=== PATIENT | male | born 1975 | race Caucasian/White ===

== ENCOUNTER 2017-10-13 18:38 | Emergency (ER) | payer OTHER ==
[2017-10-13 18:52] VITALS: BP 144/73; TEMP 97.3; O2SAT 99
[2017-10-13] MEDS ORDERED: POVIDONE IODINE 10 % 15 ML UD TOP ONE (19:31)
[2017-10-13] MEDS ORDERED: LIDOCAINE 1% 10 ML VIAL INJ ONE (19:31)
--- NOTE | 2017-10-13 19:31 | ED.PDOC ---
History of Present Illness - General Chief Complaint: Laceration Stated Complaint: laceration to right wrist Time Seen by Provider: 10/13/17 19:29 Source: patient Exam Limitations: no limitations - History of Present Illness Initial Comments: Patient presents with a laceration to his medial right forearm from a wire that got wrapped around it at work. He denies pain. He just wants sutures so he can go back to work. No other complaints. Timing/Duration: 1-3 hours Severity: mild Improving Factors: nothing Worsening Factors: nothing Associated Symptoms: denies symptoms Allergies/Adverse Reactions: Allergies NO KNOWN ALLERGY Allergy (Unverified 10/11/13 19:07) Home Medications: Ambulatory Orders NK [NK] 05/12/16 Review of Systems - Review of Systems Constitutional: States: no symptoms reported EENTM: States: no symptoms reported Respiratory: States: no symptoms reported Cardiology: States: no symptoms reported Gastrointestinal/Abdominal: States: no symptoms reported Genitourinary: States: no symptoms reported Musculoskeletal: States: no symptoms reported Skin: States: see HPI Neurological: States: no symptoms reported Endocrine: States: no symptoms reported Hematologic/Lymphatic: States: no symptoms reported Past Medical History (General) - Patient Medical History Hx Seizures: No Hx Stroke: No Hx Dementia: No Hx Asthma: No Hx of COPD: No Hx Cardiac Disorders: No Hx Congestive Heart Failure: No Hx Pacemaker: No Hx Hypertension: No Hx Thyroid Disease: No Hx Diabetes: No Hx Gastroesophageal Reflux: No Hx Renal Disease: No Hx Cancer: No Hx of HIV: No Hx Hepatitis C: No Hx MRSA: No - Vaccination History Hx Tetanus, Diphtheria Vaccination: No Hx Influenza Vaccination: No Hx Pneumococcal Vaccination: No - Social History Hx Tobacco Use: Yes Hx Alcohol Use: Yes Hx Substance Use: No Hx Substance Use Treatment: No Hx Depression: No - Triage Comment ED Triage Comment: Patient states he had wire get wrapped around his right wrist and cut his wrist. Family Medical History - Family History Father Living Status: Still Living Hx Family Hypertension: Yes Hx Cardiac Disease: Yes - [place] Hx Family;Other: Seizures; COPD Physical Exam - Physical Exam General Appearance: Alert Respiratory: chest non-tender, lungs clear, normal breath sounds Cardiovascular/Chest: normal peripheral pulses, regular rate, rhythm Peripheral Pulses: radial,right: 2+, radial,left: 2+ Gastrointestinal/Abdominal: normal bowel sounds, non tender, soft Extremity: other - 5/5 strength to flexion/extension of right wrist and fingers. 5/5 strength to adduction and abduction of the fingers and thumb. 5/5 strength to opposition and extension of the thumb. Capillary refill less than two seconds in each right nail bed and entire hand and right forearm. Neurologic: no motor/sensory deficits, other - full sensation over entire right forearm, hand and fingers Skin Exam: other - 2 cm transverse laceration on medial mid-third of the right forearm. 0.5 cm deep. Hemostatic. No intrusion into tendons, adipose, or musculature. Progress - Progress Progress: 10/13/17 19:57 Area was prepped and draped in a sterile fashion. 3 cc of 1% lidocaine with epinephrine was used to gain excellent local anesthesia. Wound was irrigated with 30 cc sterile normal saline. Wound edges approximated with 4 interrupted sutures using 4-0 proline. Area was clean, dry, and hemostatic at the end of the procedure. Patient tolerated procedure well. Tetanus booster given. Departure - Departure Clinical Impression: Laceration Disposition: Discharge to Home or Self Care Condition: Good Departure Forms: ED Discharge - Pt. Copy, Patient Portal Self Enrollment Instructions: DI for Laceration Repair Diet: resume usual diet Activity: increase activity as tolerated Home Medications: Ambulatory Orders NK [NK] 05/12/16 Additional Instructions: Apply topical antibiotic to the laceration twice per day for the first three days. Keep area clean. Return to the E.R. for redness, swelling, bleeding, pain , or pus. See your regular doctor or return to the E.R. for removal of stitches in 7-10 days.
[2017-10-13] MEDS ORDERED: TETANUS,DIPHTHERIA,PERTUSSIS 1 EA SYG IM ONE (19:55)
[2017-10-13] MEDS ORDERED: NEOMYCIN-BACITRACIN-POLYMYXIN 0.9 GM UD TOP ONE (19:57)
== END 2017-10-13 20:20 | disposition home or self-care (01) ==
LOC: ER 18:38
DX: S61.511A Laceration without foreign body of right wrist, initial encounter (principal); Z23 Encounter for immunization; W45.8XXA Other foreign body or object entering through skin, initial encounter; Y92.89 Other specified places as the place of occurrence of the external cause; Y99.0 Civilian activity done for income or pay

== ENCOUNTER 2018-08-05 08:23 | Emergency (ER) | payer SELFPAY ==
[2018-08-05] MEDS ORDERED: PROMETHAZINE HCL INJ 25 MG in SODIUM CHLORIDE 0.9% 50ML 50 ML IVPB ONE (08:44)
[2018-08-05] MEDS ORDERED: SODIUM CHLORIDE 0.9% 1000ML 1,000 ML IVS ONE ×2 (08:44→10:21)
[2018-08-05] MEDS ORDERED: PROMETHAZINE HCL INJ 25 MG/ML VIAL ONE (08:50)
[2018-08-05] MEDS ORDERED: SODIUM CHLORIDE 0.9% 50ML 50 ML ONE (08:50)
[2018-08-05] MEDS ORDERED: IBUPROFEN 200 MG TAB PO ONE (09:09)
--- NOTE | 2018-08-05 09:49 | RAD ---
EXAM DESCRIPTION: Abdomen Series CLINICAL HISTORY: 43 years Male nvd, cough, congestion COMPARISON: None TECHNIQUE: PA view of the chest and supine and upright views of the abdomen are obtained. FINDINGS: PA view of the chest demonstrates borderline cardiomegaly. There is no pulmonary vascular congestion. The mediastinum is unremarkable. No acute consolidation. No pneumothoraces or pleural effusions are seen. Supine and upright views of the abdomen show no evidence of free air. Gas-filled loops of small bowel and colon are noted which are normal in caliber. There is no evidence of obstruction. There are no abnormal intra-abdominal calcifications. The liver appears enlarged with the tip extending below the costophrenic angle with the measurement from the top of the right hemidiaphragm through the tip of the liver being 26.5 cm. No significant splenomegaly or nephromegaly. The psoas margins are sharp There are no discernible acute fractures or areas of osseous destruction or blastic change. IMPRESSION: No acute cardiopulmonary abnormality. Suspect hepatomegaly. Remainder of findings as described above. Electronically signed by: Carolin Dodge MD 08/05/2018 9:47 AM [facility]
[2018-08-05 10:41] VITALS: O2SAT 93
[2018-08-05] MEDS ORDERED: ACETAMINOPHEN 325 MG TAB PO ONE (10:42)
[2018-08-05] MEDS ORDERED: HYDROcodone 5MG/APAP 325MG 1 EA TAB PO ONE (11:21)
--- NOTE | 2018-08-05 11:24 | ED.PDOC ---
History of Present Illness - General Chief Complaint: GI Problem Stated Complaint: N/V/D,cough,shortness of breath Time Seen by Provider: 08/05/18 08:27 Source: patient Exam Limitations: no limitations - History of Present Illness Initial Comments: the patient is a 43-year-old male presenting to emergency room with 2 daysof cough, rhinitis, sore throat, nausea vomiting and diarrhea along with some body aches and fever. No syncope or near syncope. Essentially dehydration brought him in. He has been unable to hold down anything. He is feeling weak. he does have a headache but no nuchal rigidity and no altered mental status. Headache does go along with the fever. Timing/Duration: other - 2 days Severity: moderate Improving Factors: nothing Worsening Factors: nothing Associated Symptoms: fever/chills, headaches, loss of appetite, malaise, nausea/vomiting Allergies/Adverse Reactions: Allergies NO KNOWN ALLERGY Allergy (Unverified 10/11/13 19:07) Home Medications: Ambulatory Orders Hjrejcrvmilrn-Yfre-Fvuvnzhgme [Fioricet] 1 ea PO Q8H PRN #21 tab 08/05/18 Ondansetron [Zofran Odt] 4 mg PO Q4H PRN #10 tab 08/05/18 Review of Systems - Review of Systems Constitutional: States: fever, malaise, weakness EENTM: States: nose congestion, throat pain Respiratory: States: cough Cardiology: States: no symptoms reported Gastrointestinal/Abdominal: States: diarrhea, nausea, vomiting Musculoskeletal: States: no symptoms reported - generalized body aches Skin: States: no symptoms reported Neurological: States: no symptoms reported Endocrine: States: no symptoms reported All other Systems: No Change from Baseline Past Medical History (General) - Patient Medical History Hx Seizures: No Hx Stroke: No Hx Dementia: No Hx Asthma: No Hx of COPD: No Hx Cardiac Disorders: No Hx Congestive Heart Failure: No Hx Pacemaker: No Hx Hypertension: No Hx Thyroid Disease: No Hx Diabetes: No Hx Gastroesophageal Reflux: No Hx Renal Disease: No Hx Cancer: No Hx of HIV: No Hx Hepatitis C: No Hx MRSA: No - Vaccination History Hx Tetanus, Diphtheria Vaccination: No Hx Influenza Vaccination: No Hx Pneumococcal Vaccination: No - Social History Hx Tobacco Use: No Hx Chewing Tobacco Use: Yes Hx Alcohol Use: Yes Hx Substance Use: No Hx Substance Use Treatment: No Hx Depression: No Family Medical History - Family History Father Living Status: Still Living Hx Family Hypertension: Yes Hx Cardiac Disease: Yes - [place] Hx Family;Other: Seizures; COPD Physical Exam - Physical Exam General Appearance: Alert, No apparent distress, Other - he does appear dehydrated and fatigued. Eye Exam: bilateral normal Ears, Nose, Throat: hearing grossly normal, nasal congestion, pharyngeal erythema Neck: full range of motion, supple Respiratory: lungs clear, normal breath sounds, no respiratory distress, no accessory muscle use Cardiovascular/Chest: normal peripheral pulses, regular rate, rhythm - mildly tachycardic, no edema Peripheral Pulses: radial,right: 2+, radial,left: 2+, dorsalis pedis,right: 2+, dorsalis pedis,left: 2+ Gastrointestinal/Abdominal: non tender - no rebound or peritoneal signs. No point tenderness. No palpable masses., soft Rectal Exam: deferred Back Exam: no CVA tenderness, no vertebral tenderness Extremity: normal range of motion, non-tender, normal inspection, no pedal edema, no calf tenderness, normal capillary refill Skin Exam: normal color Comments: Vital Signs - 24 hr 08/05/18 08/05/18 08/05/18 08:32 09:35 10:00 Temperature 101.9 F H 101.8 F H 101.8 F H Pulse Rate [ 113 H 61 97 H Right Brachial] Respiratory 20 16 16 Rate Blood Pressure 130/96 117/71 95/75 [Right Arm] O2 Sat by Pulse 95 97 94 L Oximetry 08/05/18 10:30 Temperature 101.4 F H Pulse Rate [ 92 H Right Brachial] Respiratory 16 Rate Blood Pressure 140/75 [Right Arm] O2 Sat by Pulse 93 L Oximetry acute abdominal series fails to show any significant pathology. Blood cultures were performed. Laboratory Results - last 24 hr 08/05/18 08/05/18 08:55 08:55 WBC 9.7 RBC 4.92 Hgb 14.9 Hct 43.4 MCV 88.3 MCH 30.4 MCHC 34.4 RDW 12.7 Plt Count 246 MPV 6.8 L Absolute Neuts (auto) 8.00 H Absolute Lymphs (auto) 0.40 L Absolute Monos (auto) 0.70 Absolute Eos (auto) 0.50 H Absolute Basos (auto) 0.00 Neutrophils % 82.5 H Lymphocytes % 4.6 L Monocytes % 7.6 Eosinophils % 4.9 Basophils % 0.4 Sodium 135 Potassium 3.7 Chloride 101 Carbon Dioxide 23 Anion Gap 14.7 BUN 14 Creatinine 1.09 BUN/Creatinine Ratio 12.8 Random Glucose 107 H Serum Osmolality 271.0 L Calcium 9.6 Total Bilirubin 1.2 H AST 29 ALT 33 Alkaline Phosphatase 65 Serum Total Protein 8.2 Albumin 4.3 Globulin 3.9 H Albumin/Globulin Ratio 1.1 Amylase 41 Lipase 32 Progress - Progress Progress: 08/05/18 11:24 the patient is a 43-year-old male presenting to the emergency room with what appears to be a viral syndrome including symptoms of a upper respiratory tract infection as well as a gastroenteritis. he did test negative for influenza. Laboratory work otherwise looked reassuring. He did have significant dehydration and did receive 2 L of IV fluids. He'll be written for Zofran to control nausea as needed additionally he'll be written for some Fioricet for the headaches for as needed use. He needs to keep himself well hydrated. He needs to eat small bland meals. He should anticipate another 2-3 days of symptoms. Tylenol and Motrin can be alternated every 4 hours to control fever. ER warnings were given. he needs to follow back up with his primary care doctor next week. Departure - Departure Clinical Impression: Viral syndrome, Dehydration Disposition: Discharge to Home or Self Care Condition: Fair Departure Forms: ED Discharge - Pt. Copy, Patient Portal Self Enrollment Instructions: DI for Diarrhea and Traveler's Diarrhea -- Adult Diet: bland diet Activity: increase activity as tolerated Prescriptions: Jbeipxznvsuly-Uvbt-Qsoogclhmn [Fioricet] 1 ea PO Q8H PRN #21 tab PRN Reason: Pain Ondansetron [Zofran Odt] 4 mg PO Q4H PRN #10 tab PRN Reason: Vomiting Home Medications: Ambulatory Orders Mumolffvtkbot-Xdng-Sbdqnrinpw [Fioricet] 1 ea PO Q8H PRN #21 tab 08/05/18 Ondansetron [Zofran Odt] 4 mg PO Q4H PRN #10 tab 08/05/18 Additional Instructions: the patient is a 43-year-old male presenting to the emergency room with what appears to be a viral syndrome including symptoms of a upper respiratory tract infection as well as a gastroenteritis. he did test negative for influenza. Laboratory work otherwise looked reassuring. He did have significant dehydration and did receive 2 L of IV fluids. He'll be written for Zofran to control nausea as needed additionally he'll be written for some Fioricet for the headaches for as needed use. He needs to keep himself well hydrated. He needs to eat small bland meals. He should anticipate another 2-3 days of symptoms. Tylenol and Motrin can be alternated every 4 hours to control fever. ER warnings were given. he needs to follow back up with his primary care doctor next week.
[2018-08-05 11:36] VITALS: BP 114/74; TEMP 101.6
== END 2018-08-05 11:36 | disposition home or self-care (01) ==
LOC: ER 08:23
DX: B34.9 Viral infection, unspecified (principal); E86.0 Dehydration
CPT/HCPCS: 36415; 74019; 80053; 82150; 83690; 85025; 87040; 87502; A4216; J2550; J7030

== ENCOUNTER 2020-02-03 11:49 | Emergency (ER) | payer SELFPAY ==
[2020-02-03 12:55] VITALS: TEMP 97.3
[2020-02-03] MEDS ORDERED: ALBUTEROL SULFATE 2.5 MG/3 ML VIAL NEB ONE (13:01)
[2020-02-03] MEDS ORDERED: IPRATROPIUM/ALBUTEROL 3 ML VIAL NEB ONE (13:01)
--- NOTE | 2020-02-03 13:17 | RAD ---
EXAM DESCRIPTION: Chest,1 View CLINICAL HISTORY: 44 years Male, SOB WHEEZING COMPARISON: None available. TECHNIQUE: AP radiograph of the chest was obtained. FINDINGS: Trachea is midline.The cardiomediastinal silhouette is normal in size. The pulmonary vasculature is within normal limits.The lungs are clear with no acute consolidation.No evidence of pleural effusions. IMPRESSION: No acute cardiopulmonary process. Electronically signed by: Kori Solis MD 02/03/2020 1:16 PM CDT
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
[2020-02-03 14:26] VITALS: BP 127/93
[2020-02-03 14:27] VITALS: O2SAT 94
[2020-02-04] MEDS ORDERED: RACEPINEPHRINE 2.25% 0.5 ML UD ONE (01:20)
[2020-02-04] MEDS ORDERED: SUCCINYLCHOLINE CHLORIDE 200 MG/10 ML VIAL ONE (01:22)
== END 2020-02-03 14:26 | disposition home or self-care (01) ==
LOC: ER 11:49
DX: J45.21 Mild intermittent asthma with (acute) exacerbation (principal); F17.220 Nicotine dependence, chewing tobacco, uncomplicated
CPT/HCPCS: 71045; 94640; J7611; J7620

== ENCOUNTER 2020-02-03 21:57 | Emergency (ER) | payer SELFPAY ==
[2020-02-03] MEDS ORDERED: ALBUTEROL SULFATE 2.5 MG/3 ML VIAL NEB ONE ×3 (22:01→22:33)
[2020-02-03] MEDS ORDERED: IPRATROPIUM/ALBUTEROL 3 ML VIAL NEB ONE ×2 (22:09→22:12)
--- NOTE | 2020-02-03 22:44 | RAD ---
EXAM DESCRIPTION: XR CHEST, 2 VIEWS CLINICAL HISTORY: resp distress TECHNIQUE: Two views of the chest are submitted. COMPARISON: 02/03/2020 at 1:11 PM FINDINGS: Heart: The cardiothoracic silhouette is within normal limits. Lungs: No focal consolidation. Mediastinum: Unremarkable Pleura: No appreciable effusion. No pneumothorax. Bones: Intact Upper abdomen: Unremarkable IMPRESSION: No acute disease. Electronically signed by: Carlota Russo MD 02/03/2020 10:43 PM CDT
--- NOTE | 2020-02-03 23:22 | ED.PDOC ---
History of Present Illness - General Chief Complaint: Respiratory Problem Stated Complaint: resp distress, wheezing Time Seen by Provider: 02/03/20 22:28 Source: patient, RN notes reviewed, Vital Signs reviewed, family - , old records - From his visit on 02/03/2020 at approximately 1300 hrs. Exam Limitations: no limitations - History of Present Illness Initial Comments: Patient presents with worsening shortness of breath. He was seen here earlier today, chest x-ray was negative for any infiltrates and he markedly improved after a couple of breathing treatments. Patient was discharged home with a prescription for steroids and for an albuterol MDI and nebulizer supplies. Patient states that he was fine, got home ate dinner and then took the prednisone and approximately 45 minutes later became acutely more short of breath. Patient denies any fever. No cough at this time. Patient returns to ED because he was so short of breath he was concerned. Patient never had asthma growing up. He started having problems approximately 1 year ago while working in the [employer]. He has been using his sister's inhaler for the last 6 months to 1 year. These episodes are intermittent. Do not seem to be tied to any particular trigger. Timing/Duration: 7-24 hours Severity: severe Activities at Onset: none Possible Cause: occasional episodes Improving Factors: medication - Albuterol inhaler Worsening Factors: nothing Associated Symptoms: cough, wheezing Respiratory Risk Factors: no cause identified Allergies/Adverse Reactions: Allergies NO KNOWN ALLERGY Allergy (Unverified 02/03/20 12:51) Home Medications: Ambulatory Orders Gijtymqbwqktj-Babb-Lgbudlsrhe [Fioricet] 1 ea PO Q8H PRN #21 tab 08/05/18 Ondansetron [Zofran Odt] 4 mg PO Q4H PRN #10 tab 08/05/18 Albuterol Sulfate Nebs [Proventil Nebs] 2.5 mg INH Q4H #30 dose 02/03/20 Albuterol Sulfate [Albuterol Sulfate Hfa] 108 mcg INH Q6H #1 aer 02/03/20 predniSONE 60 mg PO DAILY #15 tab 02/03/20 Review of Systems - Review of Systems Constitutional: States: no symptoms reported, see HPI. Denies: chills, fever EENTM: States: no symptoms reported Respiratory: States: see HPI, cough - Intermittent, short of breath, wheezing. Denies: stridor Cardiology: Denies: chest pain, palpitations, syncope Gastrointestinal/Abdominal: States: no symptoms reported. Denies: diarrhea, nausea, vomiting Genitourinary: States: no symptoms reported Musculoskeletal: States: no symptoms reported. Denies: back pain, neck pain Skin: States: no symptoms reported. Denies: change in color, rash Neurological: States: no symptoms reported. Denies: tingling, weakness Endocrine: States: no symptoms reported Hematologic/Lymphatic: States: no symptoms reported All other Systems: No Change from Baseline Past Medical History (General) - Patient Medical History Hx Seizures: No Hx Stroke: No Hx Dementia: No Hx Asthma: No Hx of COPD: No Hx Cardiac Disorders: No Hx Congestive Heart Failure: No Hx Pacemaker: No Hx Hypertension: No Hx Thyroid Disease: No Hx Diabetes: No Hx Gastroesophageal Reflux: No Hx Renal Disease: No Hx Cancer: No Hx of HIV: No Hx Hepatitis C: No Hx MRSA: No - Vaccination History Hx Tetanus, Diphtheria Vaccination: No Hx Influenza Vaccination: No Hx Pneumococcal Vaccination: No - Social History Hx Tobacco Use: Yes - SNUFF Hx Chewing Tobacco Use: No Hx Alcohol Use: Yes Hx Substance Use: No Hx Substance Use Treatment: No Hx Depression: No Hx Physical Abuse: No Hx Emotional Abuse: No Hx Suspected Abuse: No - Female History Patient : No Family Medical History - Family History Father Living Status: Still Living Hx Family Asthma: No Hx Family Congestive Heart Failure: No Hx Family Hypertension: Yes Hx Cardiac Disease: Yes - MD Hx Family;Other: Seizures; COPD Physical Exam - Physical Exam General Appearance: Alert, Anxious, Obvious distress, Well Developed, Well Groomed, Well Hydrated, Well Nourished Eyes, Ears, Nose, Throat Exam: PERRL/EOMI, normal ENT inspection, pharynx normal Neck: non-tender, full range of motion, supple, other - No stridor Respiratory: respiratory distress - Severe, decreased breath sounds - Diffusely throughout, accessory muscle use - Mild intercostal retractions, rhonchi - Di ffusely throughout, wheezing - Inspiratory and expiratory. Expiratory ladder. 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 02/04/20 00:15 Patient presented with worsening respiratory distress from earlier today. Patient had minimal improvement after a DuoNeb with an albuterol. He did get some further improvement with an hour-long nebulizer treatment. Patient was given subcu epinephrine which moderately improved his oxygenation and improved his aeration. Wheezing was also diminished. 02/04/20 01:15 Patient was given IV fluids, approximately 600 mL's of normal saline, respiratory distress was noted to increase and his wheezing became worse. Cardiac enzymes are negative and BNP was low. Concern for this being cardiac asthma. Echocardiogram is not available at this time a night. With worsening respiratory drive and worsened aeration, decision was made to intubate the patient. This was an emergent procedure. 02/04/20 02:03 Patient was taken to the trauma suite. He was placed on a nonrebreather and oxygenated to 100%. Patient was given 90 of ketamine IV push, followed by 20 of etomidate and 150 of succinylcholine. Patient was easily intubated with a 7 and half endotracheal tube. There was a very transient desaturation into the 80%'s but he immediately came back to 100% with bagging. Patient noted to have reduced wheezing and better aeration. Patient tolerated the procedure well with no complications. Please see procedure note. Patient to be transferred via helicopter to [facility]. Patient has been accepted to the ED. Ramakrishna Sagastume M.D. #[id number] - Results/Orders Results/Orders: EXAM DESCRIPTION: Chest,1 View CLINICAL HISTORY: 44 years Male, SOB WHEEZING COMPARISON: None available. TECHNIQUE: AP radiograph of the chest was obtained. FINDINGS: Trachea is midline.The cardiomediastinal silhouette is normal in size. The pulmonary vasculature is within normal limits.The lungs are clear with no acute consolidation.No evidence of pleural effusions. IMPRESSION: No acute cardiopulmonary process. Electronically signed by: Kori Solis MD 02/03/2020 1:16 PM EXAM DESCRIPTION: XR CHEST, 2 VIEWS CLINICAL HISTORY: resp distress TECHNIQUE: Two views of the chest are submitted. COMPARISON: 02/03/2020 at 1:11 PM FINDINGS: Heart: The cardiothoracic silhouette is within normal limits. Lungs: No focal consolidation. Mediastinum: Unremarkable Pleura: No appreciable effusion. No pneumothorax. Bones: Intact Upper abdomen: Unremarkable IMPRESSION: No acute disease. Electronically signed by: Carlota Russo MD 02/03/2020 10:43 PM CDT EKG performed on 03 February 2020 at 2219 hrs.: Sinus tachycardia with occasional premature PVCs, normal axis deviation, no ST or T wave changes concerning for ischemia. Otherwise normal EKG 02/03/20 22:10 IV Care:Saline Lock per Protoc QSHIFT Oxygen Stat Pulse Ox Stat 02/03/20 22:15 EKG STAT 02/03/20 22:41 SARS-COV2 RT-PCR HIGH RISK Stat Laboratory Results - last 24 hr 02/03/20 02/03/20 02/03/20 22:15 22:15 22:15 WBC 12.5 H RBC 4.71 Hgb 14.8 Hct 42.0 MCV 89.3 MCH 31.4 H MCHC 35.2 RDW 13.2 Plt Count 268 MPV 6.8 L Absolute Neuts (auto) 11.70 H Absolute Lymphs (auto) 0.50 L Absolute Monos (auto) 0.20 Absolute Eos (auto) 0.10 Absolute Basos (auto) 0.00 Neutrophils % 93.4 H Lymphocytes % 4.2 L Monocytes % 1.6 L Eosinophils % 0.5 L Basophils % 0.3 Sodium 137 Potassium 3.5 L Chloride 103 Carbon Dioxide 23 Anion Gap 14.5 BUN 20 H Creatinine 1.18 BUN/Creatinine Ratio 16.9 Random Glucose 167 H Serum Osmolality 280.2 Lactic Acid 3.5 H* Calcium 9.5 Total Bilirubin 0.6 AST 33 ALT 42 Alkaline Phosphatase 61 Serum Total Protein 8.6 H Albumin 4.8 Globulin 3.8 H Albumin/Globulin Ratio 1.3 CT angiogram chest with contrast on 02/04/2020 CLINICAL INDICATION: Shortness of breath, wheezing TECHNIQUE: Multiple axial images are obtained throughout the chest following the administration of IV contrast. Computer generated 3D reconstructions/MIPS were performed. This exam was performed according to our departmental dose-optimization program, which includes automated exposure control, adjustment of the mA and/or kV according to patient size and/or use of iterative reconstruction technique. Total DLP is 923.02 mGy*cm. COMPARISON: None FINDINGS: ET tube tip is in the midthoracic trachea. Pneumomediastinum is noted greatest around the trachea and left mainstem bronchus. There is no pleural or pericardial effusion. There is no thoracic aortic aneurysm or dissection. Limited visualized upper abdomen is unremarkable. There are no filling defects within the pulmonary arteries to suggest a pulmonary embolus. There are a few peripheral groundglass opacities in the left upper lobe and lingula that are nonspecific. There may also be minimal groundglass opacity in the posterior inferior right upper lobe. Differential diagnosis would include viral infections. There is some bronchial wall thickening in the lower lobes raising a question of a mild bronchitis as well. The lungs are otherwise clear. No bony abnormality is noted. IMPRESSION: 1. No evidence of pulmonary embolus. 2. Pneumomediastinum most likely idiopathic but if there is any clinical concern for esophageal injury consider follow-up water soluble esophagram if the patient becomes extubated. 3. Nonspecific ground glass opacities greatest in the left l jason. Imaging features can be seen with a viral or COVID 19 pneumonia, though are nonspecific and can occur with a variety of infectious and noninfectious processes. [PneInd] 4. Mild bronchial wall thickening suggesting mild bronchitis as well. Electronically signed by: Ashok Tellez 02/04/2020 2:10 AM Procedures - Intubation Time of Intubation: 01:35 Intubation Method: orotracheal Tube Size (cm): 7.5 Medications: Succinylcholine - Patient given 90 of ketamine IV push, 20 of etomidate IV push and 150 of succinylcholine. Breath Sounds after Intubation: equal Intubation Complications: O2 saturation decreased - Transient for less than 30 seconds. Post Intubation Xray: No - CT of the chest showed on program director scouting film that the endotracheal tube was in good Departure - Departure Clinical Impression: Wheezing, Viral respiratory illness Respiratory failure Qualifiers: Chronicity: acute Respiratory failure complication: unspecified whether with hypoxia or hypercapnia Qualified Code(s): J96.00 - Acute respiratory failure, unspecified whether with hypoxia or hypercapnia Time of Disposition: 01:00 Disposition: Transfer to Hospital Condition: Serious Departure Forms: ED Discharge - Pt. Copy, Patient Portal Self Enrollment Home Medications: Ambulatory Orders Qweyvtrjjjnnr-Eecs-Skestpuelc [Fioricet] 1 ea PO Q8H PRN #21 tab 08/05/18 Ondansetron [Zofran Odt] 4 mg PO Q4H PRN #10 tab 08/05/18 Albuterol Sulfate Nebs [Proventil Nebs] 2.5 mg INH Q4H #30 dose 02/03/20 Albuterol Sulfate [Albuterol Sulfate Hfa] 108 mcg INH Q6H #1 aer 02/03/20 predniSONE 60 mg PO DAILY #15 tab 02/03/20 Critical Care Note - Critical Care Note Total Time (mins): 60 Transfer to Outside Facility - Transfer Information Decision to Transfer Date: 02/04/20 Decision to Transfer Time: 01:00 Reason for Transfer: ICU Accepting Provider:: Patient accepted to the emergency department Accepting Facility: [facility]
[2020-02-03] MEDS ORDERED: EPINEPHrine HCL AMP 1 MG/ML AMP SUBCU ONE (23:51)
[2020-02-03] MEDS ORDERED: SUCCINYLCHOLINE CHLORIDE 200 MG/10 ML VIAL ONE (23:55)
[2020-02-04] MEDS ORDERED: SODIUM CHLORIDE 0.9% 1000ML 1,000 ML IVS ONE (00:28)
[2020-02-04] MEDS ORDERED: RACEPINEPHRINE 2.25% 0.5 ML UD NEB ONE (01:15)
--- NOTE | 2020-02-04 02:11 | CT ---
CT angiogram chest with contrast on 02/04/2020 CLINICAL INDICATION: Shortness of breath, wheezing TECHNIQUE: Multiple axial images are obtained throughout the chest following the administration of IV contrast. Computer generated 3D reconstructions/MIPS were performed. This exam was performed according to our departmental dose-optimization program, which includes automated exposure control, adjustment of the mA and/or kV according to patient size and/or use of iterative reconstruction technique. Total DLP is 923.02 mGy*cm. COMPARISON: None FINDINGS: ET tube tip is in the midthoracic trachea. Pneumomediastinum is noted greatest around the trachea and left mainstem bronchus. There is no pleural or pericardial effusion. There is no thoracic aortic aneurysm or dissection. Limited visualized upper abdomen is unremarkable. There are no filling defects within the pulmonary arteries to suggest a pulmonary embolus. There are a few peripheral groundglass opacities in the left upper lobe and lingula that are nonspecific. There may also be minimal groundglass opacity in the posterior inferior right upper lobe. Differential diagnosis would include viral infections. There is some bronchial wall thickening in the lower lobes raising a question of a mild bronchitis as well. The lungs are otherwise clear. No bony abnormality is noted. IMPRESSION: 1. No evidence of pulmonary embolus. 2. Pneumomediastinum most likely idiopathic but if there is any clinical concern for esophageal injury consider follow-up water soluble esophagram if the patient becomes extubated. 3. Nonspecific ground glass opacities greatest in the left lung. Imaging features can be seen with a viral or COVID 19 pneumonia, though are nonspecific and can occur with a variety of infectious and noninfectious processes. [PneInd] 4. Mild bronchial wall thickening suggesting mild bronchitis as well. Electronically signed by: Ashok Tellez 02/04/2020 2:10 AM CDT
[2020-02-04 02:15] VITALS: BP 212/116; TEMP 96.8; O2SAT 100
== END 2020-02-04 02:45 | disposition short-term general hospital (02) ==
LOC: ER 21:57
DX: J96.00 Acute respiratory failure, unspecified whether with hypoxia or hypercapnia (principal); R06.2 Wheezing; B34.9 Viral infection, unspecified; F17.220 Nicotine dependence, chewing tobacco, uncomplicated
CPT/HCPCS: 31500; 36415; 71046; 71275; 80053; 81001; 82550; 82553; 83605; 83880; 84484; 85025; 87040; 87635; 93005; 94640; 94644; 94770; J0330; J7030; J7611; J7620

== ENCOUNTER → 2020-05-18 | Outpatient (CLI) | payer SELFPAY ==
--- NOTE | 2020-05-18 17:15 | RAD ---
EXAM DESCRIPTION: Chest,2 Views CLINICAL HISTORY:44 years Male, DYSPNEA Comparison: February 03, 2020 FINDINGS: No focal lung consolidation. No pleural effusion. No pneumothorax. Cardiac and mediastinal silhouette is unremarkable. No acute osseous abnormality. Soft tissues are unremarkable. IMPRESSION: No acute findings. No focal lung consolidation. Electronically signed by: David Warren MD 05/18/2020 5:14 PM CDT
== END ==
LOC: RAD 16:51
PROVIDERS: ATTEND Family Medicine
DX: R06.00 Dyspnea, unspecified (principal)

== ENCOUNTER → 2020-06-11 | Outpatient (CLI) | payer SELFPAY ==
[~2020-06-11] MED LIST: ALBUTEROL SULFATE 2.5 MG/3 ML VIAL NEB ONE
== END ==
LOC: RESP 15:30
PROVIDERS: ATTEND Family Medicine
DX: R06.09 Other forms of dyspnea (principal)
CPT/HCPCS: 94060; J7611

== ENCOUNTER → 2020-07-15 | Outpatient (CLI) | payer SELFPAY | LOC: YCFC.O 17:03 | PROVIDERS: ATTEND Nurse Practitioner Family | DX: R53.83 Other fatigue (principal); Z13.1 Encounter for screening for diabetes mellitus ==